=== PATIENT | female | born 1995 | race Caucasian/White ===

== ENCOUNTER 2017-05-06 08:10 | Emergency (ER) | payer OTHER ==
[2017-05-06] MEDS ORDERED: SODIUM CHLORIDE 0.9% 1,000 ML IV STA (08:37)
--- NOTE | 2017-05-06 08:44 | ED ---
General Adult HPI - General Chief complaint: Chest Pain Stated complaint: Heart condition Time Seen by Provider: 05/06/17 08:28 Source: patient, RN notes reviewed Mode of arrival: wheelchair Limitations: no limitations - History of Present Illness Initial comments: Patient 21-year-old female with significant past medical history for vasovagal syncope, who presents emergency room today with chief complaint of having heart palpitations after leaving work this started approximately 7 AM. She states she does feel a little lightheaded and dizzy. 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 She states she's been eating and drinking appropriately. States symptoms seem to be improving at this time. She denies any pain. Patient does admit that the symptoms are consistent with feelings and symptoms that she's had in the past with her vasovagal. Denies any travel. Patient denies any recent fever, chills, shortness of breath, chest pain, back pain, abdominal pain, nausea or vomiting, numbness or tingling, dysuria or hematuria, constipation or diarrhea, headaches or visual changes, or any other complaints. - Related Data Home Medications Medication Instructions Recorded Confirmed Acetaminophen Tab [Tylenol Tab] 650 mg PO Q4H PRN 05/06/17 05/06/17 Metoprolol Succinate [Toprol XL] 25 mg PO DAILY 05/06/17 05/06/17 Allergies Allergy/AdvReac Type Severity Reaction Status Date / Time No Known Allergies Allergy Verified 05/06/17 08:27 Review of Systems ROS Statement: Those systems with pertinent positive or pertinent negative responses have been documented in the HPI. ROS Other: All systems not noted in ROS Statement are negative. Past Medical History Additional Past Medical History / Comment(s): vasal vagal syncope History of Any Multi-Drug Resistant Organisms: None Reported Past Surgical History: Orthopedic Surgery Additional Past Surgical History / Comment(s): left knee Past Psychological History: No Psychological Hx Reported Smoking Status: Current every day smoker Past Alcohol Use History: Occasional Past Drug Use History: None Reported General Exam - General Exam Comments Initial Comments: General: The patient is awake and alert, in no distress, and does not appear acutely ill. Eye: Pupils are equal, round and reactive to light, extra-ocular movements are intact. No nystagmus. There is normal conjunctiva bilaterally. No signs of icterus. Ears, nose, mouth and throat: There are moist mucous membranes and no oral lesions. Neck: The neck is supple, there is no tenderness or JVD. Cardiovascular: There is a regular rate and rhythm. No murmur, rub or gallop is appreciated. Respiratory: Lungs are clear to auscultation, respirations are non-labored, breath sounds are equal. No wheezes, stridor, rales, or rhonchi. Gastrointestinal: Soft, non-distended, non-tender abdomen without masses or organomegaly noted. There is no rebound or guarding present. No CVA tenderness. Bowel sounds are unremarkable. Musculoskeletal: Normal ROM, no tenderness. Strength 5/5. Sensation intact. Pulses equal bilaterally 2+. Neurological: A&O x 3. CN II-XII intact, There are no obvious motor or sensory deficits. Coordination appears grossly intact. Speech is normal. Skin: Skin is warm and dry and no rashes or lesions are noted. Psychiatric: Cooperative, appropriate mood & affect, normal judgment. Limitations: no limitations Course Vital Signs 05/06/17 08:13 Temperature 96.9 F L Pulse Rate 105 H Respiratory 20 Rate Blood Pressure 145/86 O2 Sat by Pulse 99 Oximetry EKG Findings - EKG Comments: EKG Findings:: 0827: A 12-lead EKG was performed and interpreted by me as showing the following: Rate is 82, and rhythm is normal sinus. There are normal QRS complexes and normal R-wave progression. ST segments have no elevation or depression, and OK segments appear normal. Medical Decision Making - Medical Decision Making Patient reexamined at this time shows no signs of distress. She resting comfortably in the stretcher. Case was discussed with attending physician Dr. Mckinney. Patient's chest x-rays negative. Labs are unremarkable. EKG shows normal sinus rhythm. Patient does admit that these symptoms are consistent with vasovagal into that she's had in the past. At this time she is asymptomatic feeling better. Patient will be discharged home. Advised follow- up the family doctor over the next 2 days. Advised return for any other concerns. - Lab Data Result diagrams: 05/06/17 09:03 05/06/17 09:03 Lab Results 05/06/17 05/06/17 05/06/17 Range/Units 09:03 09:03 09:03 WBC 8.7 (3.8-10.6) k/uL RBC 4.78 (3.80-5.40) m/uL Hgb 13.3 (11.4-16.0) gm/dL Hct 39.2 (34.0-46.0) % MCV 82.0 (80.0-100.0) fL MCH 27.8 (25.0-35.0) pg MCHC 33.9 (31.0-37.0) g/dL RDW 13.1 (11.5-15.5) % Plt Count 267 (150-450) k/uL Neutrophils % 53 % Lymphocytes % 32 % Monocytes % 7 % Eosinophils % 4 % Basophils % 0 % Neutrophils # 4.7 (1.3-7.7) k/uL Lymphocytes # 2.8 (1.0-4.8) k/uL Monocytes # 0.6 (0-1.0) k/uL Eosinophils # 0.4 (0-0.7) k/uL Basophils # 0.0 (0-0.2) k/uL PT 9.6 (9.0-12.0) sec INR 0.9 (<1.2) APTT 25.8 (22.0-30.0) sec Sodium 143 (137-145) mmol/L Potassium 3.7 (3.5-5.1) mmol/L Chloride 110 H (98-107) mmol/L Carbon Dioxide 24 (22-30) mmol/L Anion Gap 9 mmol/L BUN 18 H (7-17) mg/dL Creatinine 0.79 (0.52-1.04) mg/dL Est GFR (MDRD) Af Amer >60 (>60 ml/min/1.73 sqM) Est GFR (MDRD) Non-Af >60 (>60 ml/min/1.73 sqM) Glucose 96 (74-99) mg/dL Calcium 9.4 (8.4-10.2) mg/dL Total Bilirubin 0.4 (0.2-1.3) mg/dL AST 19 (14-36) U/L ALT 30 (9-52) U/L Alkaline Phosphatase 61 (38-126) U/L Total Creatine Kinase (30-135) U/L CK-MB (CK-2) (0.0-2.4) ng/mL CK-MB (CK-2) Rel Index Troponin I (0.000-0.034) ng/mL Total Protein 6.5 (6.3-8.2) g/dL Albumin 3.8 (3.5-5.0) g/dL Urine Color Urine Appearance (Clear) Urine pH (5.0-8.0) Ur Specific [place] (1.001-1.035) Urine Protein (Negative) Urine Glucose (UA) (Negative) Urine Ketones (Negative) Urine Blood (Negative) Urine Nitrite (Negative) Urine Bilirubin (Negative) Urine Urobilinogen (<2.0) mg/dL Ur Leukocyte Esterase (Negative) Urine HCG, Qual (Not Detectd) 05/06/17 05/06/17 05/06/17 Range/Units 09:03 09:17 09:17 WBC (3.8-10.6) k/uL RBC (3.80-5.40) m/uL Hgb (11.4-16.0) gm/dL Hct (34.0-46.0) % MCV (80.0-100.0) fL MCH (25.0-35.0) pg MCHC (31.0-37.0) g/dL RDW (11.5-15.5) % Plt Count (150-450) k/uL Neutrophils % % Lymphocytes % % Monocytes % % Eosinophils % % Basophils % % Neutrophils # (1.3-7.7) k/uL Lymphocytes # (1.0-4.8) k/uL Monocytes # (0-1.0) k/uL Eosinophils # (0-0.7) k/uL Basophils # (0-0.2) k/uL PT (9.0-12.0) sec INR (<1.2) APTT (22.0-30.0) sec Sodium (137-145) mmol/L Potassium (3.5-5.1) mmol/L Chloride (98-107) mmol/L Carbon Dioxide (22-30) mmol/L Anion Gap mmol/L BUN (7-17) mg/dL Creatinine (0.52-1.04) mg/dL Est GFR (MDRD) Af Amer (>60 ml/min/1.73 sqM) Est GFR (MDRD) Non-Af (>60 ml/min/1.73 sqM) Glucose (74-99) mg/dL Calcium (8.4-10.2) mg/dL Total Bilirubin (0.2-1.3) mg/dL AST (14-36) U/L ALT (9-52) U/L Alkaline Phosphatase (38-126) U/L Total Creatine Kinase 96 (30-135) U/L CK-MB (CK-2) 0.7 (0.0-2.4) ng/mL CK-MB (CK-2) Rel Index 0.7 Troponin I <0.012 (0.000-0.034) ng/mL Total Protein (6.3-8.2) g/dL Albumin (3.5-5.0) g/dL Urine Color Yellow Urine Appearance Clear (Clear) Urine pH 5.5 (5.0-8.0) Ur Specific [place] 1.015 (1.001-1.035) Urine Protein Trace H (Negative) Urine Glucose (UA) Negative (Negative) Urine Ketones Negative (Negative) Urine Blood Negative (Negative) Urine Nitrite Negative (Negative) Urine Bilirubin Negative (Negative) Urine Urobilinogen <2.0 (<2.0) mg/dL Ur Leukocyte Esterase Negative (Negative) Urine HCG, Qual Not Detected (Not Detectd) Disposition Clinical Impression: Lightheaded, Palpitations Disposition: HOME SELF-CARE Condition: Good Instructions: Palpitations (ED) Additional Instructions: He's felt family doctor in the next 1-2 days. Please return here to the emergency room if any symptoms increase or worsen or for any other concerns. Referrals: Delma Sutherland MD [Primary Care Provider] - 1-2 days Time of Disposition: 10:18
[2017-05-06 09:18] LABS: Basophils % (A) 0 %; CH 27.5; CHCM 33.7; Eosinophils # (A) 0.4 k/uL (0-0.7); Eosinophils % (A) 4 %; HCT 39.2 % (34.0-46.0); HGB 13.3 gm/dL (11.4-16.0); Luc % (Auto) 4; Lymphocytes # (A) 2.8 k/uL (1.0-4.8); Lymphocytes % (A) 32 %; MCH 27.8 pg (25.0-35.0); MCHC 33.9 g/dL (31.0-37.0); Mean Platelet Volume 6.4; Monocytes # (A) 0.6 k/uL (0-1.0); Monocytes % (A) 7 %; Neutrophils # (A) 4.7 k/uL (1.3-7.7); Neutrophils % (A) 53 %; RBC 4.78 m/uL (3.80-5.40); RDW 13.1 % (11.5-15.5); WBC 8.7 k/uL (3.8-10.6); WBC (Perox) 8.57
[2017-05-06 09:25] LABS: INR 0.9 (<1.2); Partial Thromboplastin Time 25.8 sec (22.0-30.0); Prothrombin Time 9.6 sec (9.0-12.0)
[2017-05-06 09:29] LABS: ALT 30 U/L (9-52); AST 19 U/L (14-36); Alkaline Phosphatase 61 U/L (38-126); Anion Gap 9 mmol/L; Blood Urea Nitrogen 18 mg/dL (7-17); Calcium 9.4 mg/dL (8.4-10.2); Carbon Dioxide 24 mmol/L (22-30); Chloride 110 mmol/L (98-107); Glucose 96 mg/dL (74-99); Non-African American GFR(MDRD) >60 (>60 ml/min/1.73 sqM); Potassium 3.7 mmol/L (3.5-5.1); Sodium 143 mmol/L (137-145); Total Bilirubin 0.4 mg/dL (0.2-1.3); Total Protein 6.5 g/dL (6.3-8.2)
[2017-05-06 09:41] LABS: Appearance,Urine Clear (Clear); Bilirubin,Urine Negative (Negative); Glucose,Urine (UA) Negative (Negative); Ketones,Urine Negative (Negative); Leukocyte Esterase,Urine Negative (Negative); Nitrite,Urine Negative (Negative); PH, Urine 5.5 (5.0-8.0); Protein,Urine Trace (Negative); Specific Gravity,Urine 1.015 (1.001-1.035); UA Billing (MACRO vs. MICRO) CHEM; Urobilinogen,Urine <2.0 mg/dL (<2.0)
[2017-05-06 09:43] LABS: Creatine Kinase 96 U/L (30-135)
[2017-05-06 09:56] LABS: Creatine Kinase MB 0.7 ng/mL (0.0-2.4); Troponin I <0.012 ng/mL (0.000-0.034)
--- NOTE | 2017-05-06 09:58 | XR ---
EXAMINATION TYPE: XR chest 2V DATE OF EXAM: 05/06/2017 CLINICAL HISTORY: Palpitations TECHNIQUE: Frontal and lateral views of the chest are obtained. COMPARISON: None FINDINGS: There is no focal air space opacity, pleural effusion, or pneumothorax seen. The cardiac silhouette size is within normal limits. The osseous structures are intact. IMPRESSION: No acute cardiopulmonary process.
[2017-05-06 10:40] VITALS: BP 114/57; PULSE 80; RESP 18; TEMP 98
== END 2017-05-06 10:40 | disposition home or self-care (01) ==
LOC: SUPCPDRO 08:10 → EC 08:10
DX: R00.2 Palpitations (principal); R42 Dizziness and giddiness; R07.9 Chest pain, unspecified; F17.200 Nicotine dependence, unspecified, uncomplicated; Z79.899 Other long term (current) drug therapy
CPT/HCPCS: 36415; 71020; 80053; 81003; 81025; 82550; 82553; 84484; 85025; 85610; 85730; 93005; 96360; 99285

== ENCOUNTER 2019-02-05 15:01 | Emergency (ER) | payer BC, OTHER ==
[2019-02-05] MEDS ORDERED: SODIUM CHLORIDE 0.9% 500 ML 500 ML IV ONE (15:06)
--- NOTE | 2019-02-05 15:12 | ED ---
Female Urogenital HPI - General Chief complaint: Vaginal Bleeding Stated complaint: 14 wks , spotting Time Seen by Provider: 02/05/19 15:05 - History of Present Illness Initial comments: well-appearing 23 to female with history of vasovagal syncope presented today for chief complaint of spotting in . Patient states she has had painless spotting for the past 2 days. She states is light pink. Patient den ies any associated pain or vaginal discharge. Patient denies any vomiting dysuria urgency or frequency. Patient states that she has been evaluated by both her TRADE SHOW MANAGER and obstetric specialist given her history of vasovagal syncope within the past 2 months. She states she is scheduled appointment for February and March with Dr. Castro and her specialist TRADE SHOW MANAGER who she cannot recall her name. Patient states there has not been any [place] eating processes of her . Patient was concerned she was miscarrying presented for evaluation of spotting. Patient's remaining review of systems negative. Last menstrual period October 2018. - Related Data Home Medications Medication Instructions Recorded Confirmed Acetaminophen Tab [Tylenol Tab] 650 mg PO Q4H PRN 05/06/17 05/06/17 Metoprolol Succinate [Toprol XL] 25 mg PO DAILY 05/06/17 05/06/17 Allergies Allergy/AdvReac Type Severity Reaction Status Date / Time No Known Allergies Allergy Verified 02/05/19 15:20 Review of Systems ROS Statement: Those systems with pertinent positive or pertinent negative responses have been documented in the HPI. ROS Other: All systems not noted in ROS Statement are negative. Past Medical History Additional Past Medical History / Comment(s): vasal vagal syncope History of Any Multi-Drug Resistant Organisms: None Reported Past Surgical History: Orthopedic Surgery Additional Past Surgical History / Comment(s): left knee Past Psychological History: No Psychological Hx Reported Smoking Status: Current every day smoker Past Alcohol Use History: Occasional Past Drug Use History: None Reported General Exam - General Exam Comments Initial Comments: General: The patient is awake and alert, in no distress, and does not appear acutely ill. Eye: Pupils are equal, round and reactive to light, extra-ocular movements are intact. No nystagmus. There is normal conjunctiva bilaterally. No signs of icterus. Ears, nose, mouth and throat: There are moist mucous membranes and no oral lesions. Neck: The neck is supple, there is no tenderness or JVD. Cardiovascular: There is a regular rate and rhythm. No murmur, rub or gallop is appreciated. Respiratory: Lungs are clear to auscultation, respirations are non-labored, breath sounds are equal. No wheezes, stridor, rales, or rhonchi. Gastrointestinal: Soft, non-distended, non-tender abdomen without masses or organomegaly noted. There is no rebound or guarding present. Bowel sounds are unremarkable. Pelvic: No external lesions. Vaginal mucosa pink well rugated. Light pink blood in vaginal vault. No discharge. Os closed. No adnexal or cervical motion tenderness. Musculoskeletal: Normal ROM, no tenderness. Strength 5/5. Sensation intact. Pulses equal bilaterally 2+. Neurological: A&O x 3. CN II-XII intact, There are no obvious motor or sensory deficits. Coordination appears grossly intact. Speech is normal. Skin: Skin is warm and dry and no rashes or lesions are noted. Psychiatric: Cooperative, appropriate mood & affect, normal judgment. Course Vital Signs 02/05/19 15:17 Temperature 98.5 F Pulse Rate 76 Respiratory 16 Rate Blood Pressure 110/75 O2 Sat by Pulse 97 Oximetry Medical Decision Making - Medical Decision Making Very well-appearing 23-year-old female presenting first painless spotting in . Ultrasound revealed intrauterine measuring 14 weeks 2 days, HR WNL, there is no complicating process seen at this time. Patient is very minimal bleeding on pelvic examination this is light pink in color. No odors. No Discharge. Vaginal cultures pending. Patient denies any dysuria urgency or frequency or other urinary symptoms. Patient denies any pain. Cervical os was closed without any adnexal or cervical motion tenderness. Patient appears well with stable hemoglobin hemodynamically stable with normal blood pressure. Patient is a positive no indication of her program at this time. At this time feel patient has threatened miscarriage she is to follow-up with TRADE SHOW MANAGER, and return for any worsening or concerning symptoms. Patient is agreeable care plan as well as discharge at this time. I did discuss the case attending provider Dr. Santiago prior to patients discharge. - Lab Data Result diagrams: 02/05/19 15:35 02/05/19 15:35 Lab Results 02/05/19 02/05/19 02/05/19 Range/Units 15:35 15:35 15:35 WBC 10.3 (3.8-10.6) k/uL RBC 4.63 (3.80-5.40) m/uL Hgb 12.9 (11.4-16.0) gm/dL Hct 38.1 (34.0-46.0) % MCV 82.3 (80.0-100.0) fL MCH 27.8 (25.0-35.0) pg MCHC 33.8 (31.0-37.0) g/dL RDW 12.8 (11.5-15.5) % Plt Count 236 (150-450) k/uL Neutrophils % 70 % Lymphocytes % 21 % Monocytes % 5 % Eosinophils % 3 % Basophils % 0 % Neutrophils # 7.2 (1.3-7.7) k/uL Lymphocytes # 2.2 (1.0-4.8) k/uL Monocytes # 0.5 (0-1.0) k/uL Eosinophils # 0.3 (0-0.7) k/uL Basophils # 0.0 (0-0.2) k/uL Sodium 137 (137-145) mmol/L Potassium 4.2 (3.5-5.1) mmol/L Chloride 107 (98-107) mmol/L Carbon Dioxide 21 L (22-30) mmol/L Anion Gap 9 mmol/L BUN 9 (7-17) mg/dL Creatinine 0.46 L (0.52-1.04) mg/dL Est GFR (CKD-EPI)AfAm >90 (>60 ml/min/1.73 sqM) Est GFR (CKD-EPI)NonAf >90 (>60 ml/min/1.73 sqM) Glucose 91 (74-99) mg/dL Calcium 10.0 (8.4-10.2) mg/dL Total Bilirubin 0.2 (0.2-1.3) mg/dL AST 13 L (14-36) U/L ALT 13 (9-52) U/L Alkaline Phosphatase 35 L (38-126) U/L Total Protein 6.6 (6.3-8.2) g/dL Albumin 4.0 (3.5-5.0) g/dL HCG, Quant 37454.3 mIU/mL Urine Color Urine Appearance (Clear) Urine pH (5.0-8.0) Ur Specific [place] (1.001-1.035) Urine Protein (Negative) Urine Glucose (UA) (Negative) Urine Ketones (Negative) Urine Blood (Negative) Urine Nitrite (Negative) Urine Bilirubin (Negative) Urine Urobilinogen (<2.0) mg/dL Ur Leukocyte Esterase (Negative) Urine RBC (0-5) /hpf Urine WBC (0-5) /hpf Ur Squamous Epith Cells (0-4) /hpf Urine Mucus (None) /hpf Trichomonas Ag (Rapid) (Negative) Blood Type A Positive Blood Type Confirm Blood Type Recheck CABO Indicated Antibody Screen NEGATIVE Spec Expiration Date 02/08/2019 - 233402/05/19 02/05/19 02/05/19 Range/Units 15:40 16:45 16:45 WBC (3.8-10.6) k/uL RBC (3.80-5.40) m/uL Hgb (11.4-16.0) gm/dL Hct (34.0-46.0) % MCV (80.0-100.0) fL MCH (25.0-35.0) pg MCHC (31.0-37.0) g/dL RDW (11.5-15.5) % Plt Count (150-450) k/uL Neutrophils % % Lymphocytes % % Monocytes % % Eosinophils % % Basophils % % Neutrophils # (1.3-7.7) k/uL Lymphocytes # (1.0-4.8) k/uL Monocytes # (0-1.0) k/uL Eosinophils # (0-0.7) k/uL Basophils # (0-0.2) k/uL Sodium (137-145) mmol/L Potassium (3.5-5.1) mmol/L Chloride (98-107) mmol/L Carbon Dioxide (22-30) mmol/L Anion Gap mmol/L BUN (7-17) mg/dL Creatinine (0.52-1.04) mg/dL Est GFR (CKD-EPI)AfAm (>60 ml/min/1.73 sqM) Est GFR (CKD-EPI)NonAf (>60 ml/min/1.73 sqM) Glucose (74-99) mg/dL Calcium (8.4-10.2) mg/dL Total Bilirubin (0.2-1.3) mg/dL AST (14-36) U/L ALT (9-52) U/L Alkaline Phosphatase (38-126) U/L Total Protein (6.3-8.2) g/dL Albumin (3.5-5.0) g/dL HCG, Quant mIU/mL Urine Color Yellow Urine Appearance Clear (Clear) Urine pH 5.5 (5.0-8.0) Ur Specific [place] 1.017 (1.001-1.035) Urine Protein Negative (Negative) Urine Glucose (UA) Negative (Negative) Urine Ketones Negative (Negative) Urine Blood Small H (Negative) Urine Nitrite Negative (Negative) Urine Bilirubin Negative (Negative) Urine Urobilinogen <2.0 (<2.0) mg/dL Ur Leukocyte Esterase Negative (Negative) Urine RBC <1 (0-5) /hpf Urine WBC 1 (0-5) /hpf Ur Squamous Epith Cells 1 (0-4) /hpf Urine Mucus Rare H (None) /hpf Trichomonas Ag (Rapid) Negative (Negative) Blood Type Blood Type Confirm A Positive Blood Type Recheck Antibody Screen Spec Expiration Date Disposition Clinical Impression: Threatened miscarriage, Bleeding in early Disposition: HOME SELF-CARE Condition: Good Instructions (If sedation given, give patient instructions): Threatened Miscarriage (ED) Additional Instructions: Please use medication as discussed. Please follow-up with OBGYN within next 1-2 weeks. Please return to emergency room if the symptoms increase or worsen or for any other concerns. Is patient prescribed a controlled substance at d/c from ED?: No Referrals: Delma Sutherland MD [Primary Care Provider] - 1-2 days Lisseth Castro DO [Doctor of Osteopathic Medicine] - 1-2 days Time of Disposition: 16:48
[2019-02-05 15:20] VITALS: RESP 16
[2019-02-05 16:00] LABS: Basophils % (A) 0 %; Eosinophils # (A) 0.3 k/uL (0-0.7); Eosinophils % (A) 3 %; HCT 38.1 % (34.0-46.0); HGB 12.9 gm/dL (11.4-16.0); Lymphocytes # (A) 2.2 k/uL (1.0-4.8); Lymphocytes % (A) 21 %; MCH 27.8 pg (25.0-35.0); MCHC 33.8 g/dL (31.0-37.0); MCV 82.3 fL (80.0-100.0); Mean Platelet Volume 6.5; Monocytes # (A) 0.5 k/uL (0-1.0); Monocytes % (A) 5 %; Neutrophils # (A) 7.2 k/uL (1.3-7.7); Neutrophils % (A) 70 %; Platelet Count 236 k/uL (150-450); RBC 4.63 m/uL (3.80-5.40); RDW 12.8 % (11.5-15.5); WBC 10.3 k/uL (3.8-10.6)
[2019-02-05 16:09] LABS: ALT 13 U/L (9-52); AST 13 U/L (14-36); Alkaline Phosphatase 35 U/L (38-126); Anion Gap 9 mmol/L; Blood Urea Nitrogen 9 mg/dL (7-17); Carbon Dioxide 21 mmol/L (22-30); Chloride 107 mmol/L (98-107); Glucose 91 mg/dL (74-99); Potassium 4.2 mmol/L (3.5-5.1); Sodium 137 mmol/L (137-145); Total Bilirubin 0.2 mg/dL (0.2-1.3); Total Protein 6.6 g/dL (6.3-8.2)
--- NOTE | 2019-02-05 16:15 | US ---
EXAMINATION TYPE: Transabdominal DATE OF EXAM: 02/05/2019 4:01 PM COMPARISON: NONE CLINICAL HISTORY: spotting/cramping in , 14 weeks. EXAM PERFORMED: EXAM MEASUREMENTS: GESTATIONAL AGE / DATING Physician Established: (14 weeks/2 days) EDC: 08/04/19 Dates by LMP: ( 14 weeks/2 days) EDC: 08/04/19 Dates by First Scan: not available ( Dates by Current Scan for: (14 weeks/1 days) EDC: 08/05/19 MATERNAL ANATOMY Uterus: 14.2 x 7.8 x 9.7cm Right Ovary: not visualized due to increasing uterine size and overlying bowel gas Left Ovary: not visualized due to increasing uterine size and overlying bowel gas Post CDS / Adnexa: wnl Presence of free fluid: no GESTATION / SURVEY CRL: 8.1cm ( 14 weeks/1 days) Yolk Sac (normal less than 6mm): not seen Heart Rate: 148 bpm Rhythm: Normal IUP: Live IUP Date of LMP: 10/28/2018 Beta HcG (if available): Not available at this time IMPRESSION: Single live intrauterine with a sonographic age of 14 weeks and 1 day, concordant with mens trual age and heart rate of 148 bpm. No complicating process is identified.
[2019-02-05 17:19] LABS: HCG,Quantitative Serum 35883.3 mIU/mL
[2019-02-05 17:31] LABS: Appearance,Urine Clear (Clear); Bilirubin,Urine Negative (Negative); Blood,Urine Small (Negative); Color,Urine Yellow; Glucose,Urine (UA) Negative (Negative); Ketones,Urine Negative (Negative); Leukocyte Esterase,Urine Negative (Negative); Mucus,Urine Rare /hpf; Nitrite,Urine Negative (Negative); PH, Urine 5.5 (5.0-8.0); Protein,Urine Negative (Negative); RBC,Urine <1 /hpf (0-5); Specific Gravity,Urine 1.017 (1.001-1.035); Squamous Epithelial Cell,Urine 1 /hpf (0-4); Urobilinogen,Urine <2.0 mg/dL (<2.0); WBC,Urine 1 /hpf (0-5)
[2019-02-05 17:49] VITALS: BP 101/52; PULSE 79; TEMP 98
[2019-02-06 14:28] LABS: N. gonorrhoeae,PCR Negative (Neg,Equiv); Neisseria Source Vagina
[2019-02-06 14:32] LABS: C. trachomatis,PCR Negative (Neg,Equiv); Chlamydia trachomatis Source Vagina
== END 2019-02-05 17:50 | disposition home or self-care (01) ==
LOC: EC 15:01
DX: O20.0 Threatened abortion (principal); O99.332 Smoking (tobacco) complicating pregnancy, second trimester; F17.200 Nicotine dependence, unspecified, uncomplicated; Z3A.14 14 weeks gestation of pregnancy; Z79.899 Other long term (current) drug therapy
CPT/HCPCS: 36415; 76801; 80053; 81001; 84702; 85025; 86850; 86900; 86901; 87070; 87205; 87491; 87591; 87808; 96360; 99284

== ENCOUNTER → 2019-02-22 | Outpatient (CLI) | payer BC, OTHER | END | disposition home or self-care (01) | LOC: LABWHC1 13:10 | PROVIDERS: ATTEND Obstetrics & Gynecology Maternal & Fetal Medicine | DX: Z34.81 Encounter for supervision of other normal pregnancy, first trimester (principal) | CPT/HCPCS: 36415; 82105; 82677; 84702; 86336 ==

== ENCOUNTER → 2019-04-29 | Outpatient (CLI) | payer BC, OTHER ==
[2019-04-29 13:14] LABS: Glucose 3 Hour, Gest 57 mg/dL
== END | disposition home or self-care (01) ==
LOC: LABWHC1 08:44
PROVIDERS: ATTEND Obstetrics & Gynecology
DX: O99.810 Abnormal glucose complicating pregnancy (principal)
CPT/HCPCS: 36415; 82951; 82952

== ENCOUNTER 2019-08-02 05:48 | Inpatient (IN) | payer BC, OTHER ==
[2019-07-29 14:49] VITALS: BMI 42.4
--- NOTE | 2019-08-01 18:57 | P.HPOB ---
History of Present Illness H&P Date: 08/01/19 Chief Complaint: Macrosomia This is a 23-year-old female 1 para 0 with a estimated date of confinement of 07/04/2019, estimated gestational age of 39-5/7 weeks, who presents to labor and delivery for scheduled primary section secondary to macrosomia. Her ultrasound at 39 weeks showed an estimated weight of 9 lbs. 8 oz. which was greater than 90th percentile. In light of the potential risk for shoulder dystocia, she wishes to proceed with very section. labs: GC/chlamydia-negative Hepatitis B surface antigen-negative RPR-nonreactive Rubella-nonimmune Blood type-A+ Antibody screen-negative HIV-nonreactive Hemoglobin-13.1 Random glucose-76 Integrated screen-negative One hour Glucola-154 Three-hour Glucola-within normal limits Group B streptococcus-positive Obstetrical history: Gynecologic history: No history of sexual transmitted diseases. Social history: She is single. She works full-time at [employer] Review of Systems Constitutional: Denies chills, Denies fever Eyes: denies blurred vision, denies pain Ears, nose, mouth and throat: Denies headache, Denies sore throat Cardiovascular: Denies chest pain, Denies shortness of breath Respiratory: Denies cough Gastrointestinal: Reports abdominal pain (Irregular contractions) Genitourinary: Reports pelvic pain, Reports Musculoskeletal: Reports low back pain Integumentary: Denies pruritus, Denies rash Neurological: Denies numbness, Denies weakness Psychiatric: Denies anxiety, Denies depression Past Medical History Past Medical History: Atrial Flutter, GERD/Reflux, Hypertension Additional Past Medical History / Comment(s): vasal vagal syncope. irregular heart rate "races" History of Any Multi-Drug Resistant Organisms: None Reported Past Surgical History: Orthopedic Surgery Additional Past Surgical History / Comment(s): left knee Past Anesthesia/Blood Transfusion Reactions: No Reported Reaction Past Psychological History: ADD/ADHD Smoking Status: Never smoker Past Alcohol Use History: None Reported Past Drug Use History: None Reported - Past Family History Mother Family Medical History: No Reported History Medications and Allergies Home Medications Medication Instructions Recorded Confirmed Type Acetaminophen Tab [Tylenol Tab] 650 mg PO Q4H PRN 05/06/17 07/29/19 History L.acidoph,Paracasei, B.lactis 1 each PO DAILY 07/29/19 07/29/19 History [Probiotic] Yto-Uqoz-Eosjb Acid 1 cap PO DAILY 07/29/19 07/29/19 History [-U Capsule (formulary)] Allergies Allergy/AdvReac Type Severity Reaction Status Date / Time No Known Allergies Allergy Verified 07/29/19 14:40 Exam Osteopathic Statement: *. No significant issues noted on an osteopathic structural exam other than those noted in the History and Physical/Consult. HEENT: Within normal limits Heart: Regular rate and rhythm Lungs: Clear to auscultation bilaterally Abdomen: Cervix: 1 cm/60%/-2 station heart tones: 140s by Doppler Extremities: Negative Homans Assessment and Plan (1) 39 weeks gestation of Status: Acute Code(s): Z3A.39 - 39 WEEKS GESTATION OF SNOMED Code(s): 07915425 (2) Macrosomia Status: Acute Code(s): P08.0 - EXCEPTIONALLY LARGE BABY SNOMED Code(s): 11063125 Plan: Proceed with primary low transverse section. I have discussed the risks, benefits, and alternative therapies for the above- mentioned procedure and for both sedation/anesthesia as well as necessary blood products administration, if indicated, as they pertain to this patient. The patient has indicated her understanding and acceptance of the risks and procedures discussed.
[2019-08-02] MEDS ORDERED: CITRIC ACID-SODIUM CITRATE 15 ML CUP PO ONE (06:04)
[2019-08-02] MEDS ORDERED: LIDOCAINE 1% 20 ML VIAL (10MG/ML) FOR IV START INTRADERMA PRN (06:04)
[2019-08-02] MEDS ORDERED: LACTATED RINGERS 1,000 ML IV ONE (06:04)
[2019-08-02] MEDS: LACTATED RINGERS 1,000 ML IV SCH ×2 (06:10→12:52)
[2019-08-02] MEDS ORDERED: ceFAZolin 3 GM in SODIUM CHLORIDE 0.9% 100 ML IVPB ONE (06:30)
[2019-08-02 06:46] LABS: Basophils # (A) 0.1 k/uL (0-0.2); Basophils % (A) 1 %; Eosinophils # (A) 0.2 k/uL (0-0.7); Eosinophils % (A) 2 %; HGB 12.1 gm/dL (11.4-16.0); Lymphocytes # (A) 1.7 k/uL (1.0-4.8); Lymphocytes % (A) 19 %; MCH 26.4 pg (25.0-35.0); MCHC 32.6 g/dL (31.0-37.0); MCV 80.8 fL (80.0-100.0); Mean Platelet Volume 6.7; Monocytes # (A) 0.6 k/uL (0-1.0); Monocytes % (A) 7 %; Neutrophils # (A) 5.9 k/uL (1.3-7.7); Neutrophils % (A) 68 %; Platelet Count 208 k/uL (150-450); RBC 4.57 m/uL (3.80-5.40); RDW 13.2 % (11.5-15.5); WBC 8.7 k/uL (3.8-10.6)
[2019-08-02] MEDS ORDERED: OXYTOCIN 10 UNIT/ML 1 ML VIAL ONE (07:49)
[2019-08-02] MEDS ORDERED: LACTATED RINGERS 1,000 ML BAG IV ONE (07:49)
[2019-08-02] MEDS ORDERED: MORPHINE SULFATE (PF) 0.3 MG/0.3 ML SYR ONE (07:49)
[2019-08-02] MEDS ORDERED: NALBUPHINE 10 MG/ML (1 ML AMP) ONE (07:49)
[2019-08-02] MEDS ORDERED: ONDANSETRON 4 MG/2 ML VIAL ONE (07:49)
[2019-08-02] MEDS ORDERED: PHENYLEPHRINE-0.9% NACL SYG 1 MG/10 ML SYRINGE ONE (07:49)
[2019-08-02] MEDS ORDERED: KETOROLAC 30 MG/ML 1 ML VIAL ONE (07:49)
[2019-08-02] MEDS ORDERED: ONDANSETRON 4 MG/2 ML VIAL IVP PRN ×2 (08:16→09:38)
[2019-08-02] MEDS ORDERED: NALOXONE 0.4 MG/ML 1 ML VIAL IV PRN ×2 (08:16→09:38)
[2019-08-02] MEDS ORDERED: HYDROmorphone 0.5 MG/0.5 ML SYRINGE IVP PRN (08:16)
[2019-08-02] MEDS ORDERED: diphenhydrAMINE 50 MG/ML 1 ML VIAL IVP PRN ×3 (08:16→09:38)
--- NOTE | 2019-08-02 08:33 | P.OP ---
Date of Procedure: 08/02/19 Preoperative Diagnosis: 1. Intrauterine at 39-5/7 weeks. 2. macrosomia. 3. Chronic hypertension. 4. Marginal cord insertion. Postoperative Diagnosis: Same Procedure(s) Performed: Primary low transverse section Anesthesia: spinal (Duramorph) Surgeon: Lisseth Castro Air Traffic Controller #1: Dipesh Gaona Estimated Blood Loss (ml): 700 Pathology: other (Placenta) Condition: stable Disposition: floor Indications for Procedure: This is a 23-year-old female 1 para 0 at 39-5/7 weeks who presents for scheduled primary section secondary to macrosomia. In addition she has a history of chronic hypertension and marginal cord insertion. She was counseled regarding the risks of macrosomia and risk for shoulder dystocia and wishes to proceed with section. I have discussed the risks, benefits, and alternative therapies for the above- mentioned procedure and for both sedation/anesthesia as well as necessary blood products administration, if indicated, as they pertain to this patient. The patient has indicated her understanding and acceptance of the risks and procedures discussed. Operative Findings: A viable male is noted in the vertex presentation with scores of 9 at 1 minute and 9 at 5 minutes and infant weight of 10 lbs. 8 oz. Normal uterus tubes and ovaries are noted. Description of Procedure: The patient is taken to the operating room where she is placed in the dorsal supine position with leftward tilt after spinal Duramorph anesthesia is given. She is prepped and draped in the normal sterile fashion. Skin was tested and found to be adequately anesthetized. A Pfannenstiel skin incision was made with a scalpel. A second knife was used to carry the incision down to the underlying layer of fascia. The fascia was nicked in the midline with a scalpel and then extended laterally bilaterally with Almanzar scissors. The anterior lip of the fascia was grasped with 2 Romelia clamps and then dissected off the underlying rectus muscle in the midline with Almanzar scissors. The inferior aspect of the fascial incision was grasped with 2 Romelia clamps and dissected off the underlying rectus muscle and the midline with Almanzar scissors. Next the peritoneum layer was tented up with 2 hemostats and then entered sharply with the scalpel. The incision is extended superiorly and inferiorly with Metzenbaum scissors. Next a DeLee retractor is placed. The vesicouterine peritoneum is entered sharply with Metzenbaum scissors and extended laterally bilaterally with Metzenbaum scissors and then the bladder flap is pushed inferiorly. The lower uterine segment is incised in transverse fashion with the scalpel and then bluntly entered with a hemostat. Clear fluid is noted. The incision was then extended laterally bilaterally with 2 fingers. Next the 's head is delivered through the incision. Nose and mouth are bulb suctioned. The remainder of the infant is then delivered and placed on mother's abdomen. Cord is clamped and cut. Terminal meconium was noted. is taken to warmer by nursing staff. Uterine fundus is gently massaged and placenta is delivered manually. Uterus is exteriorized and cleared of all clots and debris. Uterine incision is closed with 0 Vicryl suture in a running locked fashion. A second layer of 0 Vicryl suture is used in a running fashion for hemostasis. Once adequate hemostasis as assured, the vesicouterine peritoneum is reapproximated with 2-0 Vicryl suture in a running fashion. Posterior cul-de-sac is suctioned of all clots and debris. Uterus is returned to the abdomen. Incision is noted to be hemostatic. Peritoneal layer is closed with 0 Vicryl suture in a running fashion. Muscle layer is reapproximated with 0 Vicryl suture in interrupted fashion. Fascia layer is then closed with 0 PDS suture with 2 sutures meeting in the midline and the knots buried in either side and in the midline. The subcutaneous tissue was then closed with 2-0 Vicryl suture. Skin layer was then closed with tree. All sponge and needle counts are correct. The patient is taken to recovery room in stable condition.
[2019-08-02] MEDS ORDERED: MEASLES-MUMPS-RUBELLA VACC/PF 12,500 UNIT/0.5 ML VIAL SQ ONE (09:38)
[2019-08-02] MEDS ORDERED: SIMETHICONE 80 MG CHEWABLE PO PRN (09:38)
[2019-08-02] MEDS ORDERED: LANOLIN CREAM 5 GM TUBE TOPICAL PRN (09:38)
[2019-08-02] MEDS ORDERED: diphenhydrAMINE 25 MG CAP PO PRN (09:38)
[2019-08-02] MEDS ORDERED: OXYTOCIN 20 UNITS/1000 ML NS 1,000 ML IV SCH (09:38)
[2019-08-02] MEDS ORDERED: ACETAMINOPHEN TAB 325 MG TAB PO PRN (09:38)
[2019-08-02] MEDS ORDERED: METOCLOPRAMIDE 5 MG/ML 2 ML VIAL IVP PRN (09:38)
[2019-08-02] MEDS ORDERED: ZOLPIDEM 5 MG TAB PO PRN (09:38)
[2019-08-02] MEDS ORDERED: diphenhydrAMINE 50 MG CAP PO PRN (09:38)
[2019-08-02] MEDS ORDERED: KETOROLAC 30 MG/ML 1 ML VIAL IVP PRN (09:38)
[2019-08-02] MEDS: KETOROLAC 30 MG/ML 1 ML VIAL IVP PRN ×2 (15:27→21:30)
[2019-08-02] MEDS: SENNOSIDES-DOCUSATE SODIUM 1 EACH TAB PO SCH ×2 (20:38→21:30)
[2019-08-03] MEDS: KETOROLAC 30 MG/ML 1 ML VIAL IVP PRN (03:43)
[2019-08-03 06:55] LABS: Basophils # (A) 0.1 k/uL (0-0.2); Basophils % (A) 1 %; Eosinophils # (A) 0.1 k/uL (0-0.7); Eosinophils % (A) 1 %; HCT 33.8 % (34.0-46.0); HGB 11.2 gm/dL (11.4-16.0); Lymphocytes # (A) 1.2 k/uL (1.0-4.8); Lymphocytes % (A) 12 %; MCH 26.9 pg (25.0-35.0); MCV 81.3 fL (80.0-100.0); Mean Platelet Volume 6.8; Monocytes # (A) 0.9 k/uL (0-1.0); Monocytes % (A) 9 %; Neutrophils # (A) 7.3 k/uL (1.3-7.7); Neutrophils % (A) 74 %; Platelet Count 209 k/uL (150-450); RBC 4.16 m/uL (3.80-5.40); RDW 13.4 % (11.5-15.5); WBC 9.9 k/uL (3.8-10.6)
[2019-08-03] MEDS: SENNOSIDES-DOCUSATE SODIUM 1 EACH TAB PO SCH ×2 (08:52→22:51)
--- NOTE | 2019-08-03 09:39 | P.PNOBGPC ---
Subjective - Subjective Principal diagnosis: Status post primary section postoperative day #1 Interval history: Patient is doing well. She is passing flatus. She denies any bowel movement yet. She is bottle feeding. Lochia is decreasing. Pain is fairly well controlled at this time. Patient reports: Reports appetite normal, Reports voiding normally, Reports pain well controlled, Reports ambulating normally [place]: doing well, bottle feeding Objective - Vital Signs Latest vital signs: Vital Signs Temp Pulse Resp BP Pulse Ox 08/03/19 04:00 98.1 F 93 16 111/67 08/03/19 03:00 14 08/03/19 00:00 98.5 F 94 16 112/74 08/02/19 23:00 16 08/02/19 21:00 98.5 F 94 16 112/74 08/02/19 20:00 99.3 F 94 14 119/70 08/02/19 19:00 15 08/02/19 17:00 15 96 08/02/19 16:00 98.1 F 110 H 16 128/73 96 08/02/19 15:00 16 08/02/19 12:00 98.3 F 105 H 15 127/78 96 08/02/19 10:38 97 F L 97 16 119/67 08/02/19 10:10 102 H 16 101/62 08/02/19 09:45 96 08/02/19 09:44 16 08/02/19 09:40 96 16 107/62 Intake and Output 08/02/19 08/03/19 08/03/19 22:59 06:59 14:59 Output Total 500 1400 Balance -500 -1400 Output: Urine 500 1400 Straight 600 Uretheral (Linda) 500 - Exam Extremities: Absent: normal Abdomen: Present: normal appearance, soft (Positive bowel sounds 4). Absent: distention, tenderness Incision: Present: normal, dry, intact. Absent: erythematous Uterus: Present: normal, firm. Absent: tenderness - Labs Labs: Abnormal Lab Results - Last 24 Hours (Table) 08/03/19 Range/Units 06:17 Hgb 11.2 L (11.4-16.0) gm/dL Hct 33.8 L (34.0-46.0) % Assessment and Plan Assessment: Status post primary section postoperative day #1 (1) 39 weeks gestation of Current Visit: No Status: Acute Code(s): Z3A.39 - 39 WEEKS GESTATION OF SNOMED Code(s): 78340661 (2) Macrosomia Current Visit: No Status: Acute Code(s): P08.0 - EXCEPTIONALLY LARGE BABY SNOMED Code(s): 76293948 Plan: Continue with postoperative care. Encouraged ambulation. Will advance diet as tolerated.
--- NOTE | 2019-08-03 10:41 | P.PN ---
Progress Note - Text Anesthesia POD 1. Patient is status post section under spinal anesthesia with intra-thecal preservative free morphine 300 g. Mild pruritus, good post-op analgesia, and no headache or other complication.
[2019-08-03] MEDS: IBUPROFEN 600 MG TAB PO PRN ×2 (12:11→17:59)
[2019-08-03] MEDS: HYDROcodone/APAP 5-325MG 1 EACH TAB PO PRN (15:38)
[2019-08-03] MEDS: HYDROcodone/APAP 7.5-325MG 1 EACH TAB PO PRN (22:51)
[2019-08-04] MEDS: IBUPROFEN 600 MG TAB PO PRN ×4 (00:58→18:35)
[2019-08-04] MEDS: HYDROcodone/APAP 7.5-325MG 1 EACH TAB PO PRN ×2 (04:08→21:31)
--- NOTE | 2019-08-04 08:24 | P.PNOBGPC ---
Subjective - Subjective Principal diagnosis: Status post primary section postoperative day #2 Interval history: Patient complains of more pain especially when trying to get in and out of bed. She feels it is related to her tree. She has been trying a abdominal binder. She is passing flatus and bowel movement. Baby is bottle feeding. Lochia is decreasing. Patient reports: Reports appetite normal, Reports voiding normally, Reports ambulating normally : doing well, bottle feeding Objective - Vital Signs Latest vital signs: Vital Signs Temp Pulse Resp BP Pulse Ox 08/04/19 00:00 98.7 F 96 18 119/75 08/03/19 15:48 98.0 F 85 16 120/70 99 Intake and Output 08/03/19 08/04/19 08/04/19 22:59 06:59 14:59 Other: # Voids 2 1 - Exam Extremities: Present: normal. Absent: tenderness Abdomen: Present: normal appearance, soft (Positive bowel sounds 4). Absent: distention, tenderness Incision: Present: normal, dry, intact. Absent: erythematous Uterus: Present: normal, firm. Absent: tenderness Assessment and Plan Assessment: Status post primary section postoperative day #2 (1) 39 weeks gestation of Current Visit: No Status: Acute Code(s): Z3A.39 - 39 WEEKS GESTATION OF SNOMED Code(s): 70326935 (2) Macrosomia Current Visit: No Status: Acute Code(s): P08.0 - EXCEPTIONALLY LARGE BABY SNOMED Code(s): 02510013 Plan: Will remove tree and place Steri-Strips today. We'll continue with care and pain management today. Anticipate discharge home tomorrow.
[2019-08-04] MEDS: SENNOSIDES-DOCUSATE SODIUM 1 EACH TAB PO SCH ×2 (08:35→21:31)
[2019-08-04] MEDS: HYDROcodone/APAP 5-325MG 1 EACH TAB PO PRN ×2 (10:24→16:08)
[2019-08-05] MEDS: IBUPROFEN 600 MG TAB PO PRN ×2 (00:03→06:21)
[2019-08-05 01:39] VITALS: RESP 16
[2019-08-05] MEDS: HYDROcodone/APAP 7.5-325MG 1 EACH TAB PO PRN ×2 (02:59→09:04)
--- NOTE | 2019-08-05 08:40 | P.DS ---
Providers Date of admission: 08/02/19 05:48 Expected date of discharge: 08/05/19 Attending physician: Lisseth Castro Primary care physician: Lisseth Castro - Discharge Diagnosis(es) (1) 39 weeks gestation of Current Visit: No Status: Acute (2) Macrosomia Current Visit: No Status: Acute Hospital Course: This is a 23-year-old female 1 para 0 at 39-5/7 weeks who presented for scheduled primary section secondary to macrosomia. She underwent a primary low transverse section on 08/02/2019 and delivered a viable male infant with scores of 9 at 1 minute and 9 at 5 minutes and weight of 10 lbs. 8 oz. Her postoperative and course were essentially uncomplicated. She did initially have some issues with pain control but this has improved. She is using ibuprofen and [place]. She is passing flatus and bowel movement. Lochia is decreasing. She is bottle feeding. Vital signs are stable. Abdomen is soft with positive bowel sounds 4. Incision is clean dry and intact. Extremities show negative Homans. Impression is status post primary section postoperative day #3. Plan is to discharge home today. Routine postoperative and instructions are given. She will be given a prescription for ibuprofen and [place]. She has been counseled regarding opioid use and has signed a opioid start talking form. Howells have been removed and Steri-Strips are placed. She is advised to follow-up in the office in 1 week for a postoperative check and in 6 weeks for a check. Routine postoperative instructions are given. She is advised to call the office if she has any further questions or concerns prior to her appointment time. Procedures: Primary low transverse section on 08/02/2019 Patient Condition at Discharge: Stable Plan - Discharge Summary Discharge Rx Participant: No New Discharge Prescriptions: New Ibuprofen [Motrin] 600 mg PO Q6HR PRN #60 tab PRN Reason: Mild Pain Or Fever >= 100.5 HYDROcodone/APAP 7.5-325MG [[place] 7.5-325] 1 each PO Q6H PRN #28 tab PRN Reason: Severe Pain Continue Yib-Upoh-Dmfuq Acid [-U Capsule (formulary)] 1 cap PO DAILY No Action Acetaminophen Tab [Tylenol Tab] 650 mg PO Q4H PRN PRN Reason: Pain L.acidoph,Paracasei, B.lactis [Probiotic] 1 each PO DAILY Discharge Medication List Acetaminophen Tab [Tylenol Tab] 650 mg PO Q4H PRN 05/06/17 [History] L.acidoph,Paracasei, B.lactis [Probiotic] 1 each PO DAILY 07/29/19 [History] Msr-Xrxl-Oveqg Acid [-U Capsule (formulary)] 1 cap PO DAILY 07/29/19 [History] HYDROcodone/APAP 7.5-325MG [[place] 7.5-325] 1 each PO Q6H PRN #28 tab 08/05/19 [Rx] Ibuprofen [Motrin] 600 mg PO Q6HR PRN #60 tab 08/05/19 [Rx] Follow up Appointment(s)/Referral(s): Lisseth Castro DO [Primary Care Provider] - 1 Week Discharge Disposition: HOME SELF-CARE
[2019-08-05] MEDS: SENNOSIDES-DOCUSATE SODIUM 1 EACH TAB PO SCH (09:04)
[2019-08-05 09:41] VITALS: BP 132/75; PULSE 95; TEMP 98.4
== END 2019-08-05 11:00 | disposition home or self-care (01) | DRG 786 ==
LOC: 4FBP 05:48
PROVIDERS: ADMIT Obstetrics & Gynecology; ATTEND Obstetrics & Gynecology
PROC: 10D00Z1 Extraction of Products of Conception, Low, Open Approach (ICD-10-PCS; principal; 2019-08-02 08:00)
DX: O36.63X0 Maternal care for excessive fetal growth, third trimester, not applicable or unspecified (principal); O99.42 Diseases of the circulatory system complicating childbirth; I48.92 Unspecified atrial flutter; O16.4 Unspecified maternal hypertension, complicating childbirth; O43.193 Other malformation of placenta, third trimester; O99.344 Other mental disorders complicating childbirth; F90.9 Attention-deficit hyperactivity disorder, unspecified type; O99.62 Diseases of the digestive system complicating childbirth; O99.824 Streptococcus B carrier state complicating childbirth; K21.9 Gastro-esophageal reflux disease without esophagitis; L29.9 Pruritus, unspecified; O99.72 Diseases of the skin and subcutaneous tissue complicating childbirth; Z37.0 Single live birth; Z3A.39 39 weeks gestation of pregnancy
CPT/HCPCS: 85025; 86850; 86900; 86901; 88307; 90707

== ENCOUNTER → 2021-04-17 | Outpatient (CLI) | payer OTHER ==
--- NOTE | 2021-04-17 08:43 | MR ---
EXAMINATION TYPE: MR knee LT wo con DATE OF EXAM: 04/17/2021 COMPARISON: 04/02/2021 HISTORY: 25-year-old female M25.562, Left knee pain, Slipped off steps, Hx of ACL repair x 10 years a go TECHNIQUE: Multiplanar, multisequence imaging of the left knee is performed without IV contrast. FINDINGS: Postsurgical change of previous ACL graft reconstruction. There is increased signal within the graft that could reflect degenerative change but intact fibers are visualized. PCL, MCL, and LCL complex are intact. There is a large bucket-handle tear involving the entirety of the medial meniscus with flipped fragme nt in the intercondylar region. Overall preserved medial compartment articular cartilage volume. There is an oblique tear at the junction of the posterior horn and body of the lateral meniscus. Over all lateral compartment articular cartilage volume appears maintained. Patellofemoral compartment articular cartilage appears intact. There is a gzzxn-sz-aktgzsej knee joint effusion and a moderate-sized 6.2 x 4.8 cm Vargas's cyst which shows minimal leakage. Extensor mechanism is intact. Normal popliteal artery anatomy and muscle bulk. No suspicious bone marrow replacement. IMPRESSION: 1. Previous ACL graft reconstruction. There is degenerative signal within the graft but it appears in tact. 2. Large bucket-handle tear involving the entirety of the medial meniscus with flipped fragment in th e intercondylar region. 3. Small oblique tear at the junction of the posterior horn and body of the lateral meniscus. 4. Small to moderate knee joint effusion and a moderate-sized 6.2 cm Vargas cyst which shows minimal l eakage.
== END | disposition home or self-care (01) ==
LOC: RADMRIMAIN 06:50
PROVIDERS: ATTEND Orthopaedic Surgery
DX: M23.322 Other meniscus derangements, posterior horn of medial meniscus, left knee (principal); M17.12 Unilateral primary osteoarthritis, left knee; M71.22 Synovial cyst of popliteal space [Baker], left knee

== ENCOUNTER 2021-05-30 10:39 | Day surgery (SDC) | payer OTHER ==
[2021-05-23 09:00] VITALS: BMI 40.4
--- NOTE | 2021-05-29 19:47 | HP ---
HISTORY AND PHYSICAL DATE OF SURGERY: 05/30/2021 Lashae Alcazar is a 25-year-old patient seen with progressive left knee pain. We discussed options for treatment. She elected to proceed with arthroscopy. Consent was obtained. PAST MEDICAL HISTORY: Attention deficit disorder. PAST SURGICAL HISTORY: Left knee ACL reconstruction. DAILY MEDICATIONS: Adderall. ALLERGIES: NONE. SOCIAL HISTORY: She denies tobacco use. PHYSICAL EVALUATION OF THE LEFT KNEE: Range of motion zero to 130. Mild effusion. Tenderness, medial joint line. Positive medial Margot's. Jose's +1, good endpoint. Distal neurovascular exam intact. RADIOGRAPHS: Radiographs of the left knee revealed evidence for previous ACL reconstruction. MRI left knee revealed a bucket-handle medial meniscal tear and stable ACL graft. IMPRESSION: 1. Internal derangement of left knee with medial meniscal tear. 2. History of left knee ACL reconstruction. PLAN: Left knee arthroscopy with partial meniscectomy and debridement. MMODL / IJN: [id number] /
[~2021-05-30 10:39] MED LIST: DEXAMETHASONE SOD PHOSPHATE 4 MG/ML 1 ML VIAL IV ONE; HYDROmorphone 0.5 MG/0.5 ML SYRINGE IVP PRN; ONDANSETRON 4 MG/2 ML VIAL IVP ONE
[2021-05-30 11:13] VITALS: RESP 16
[2021-05-30] MEDS: LACTATED RINGERS 1,000 ML IV SCH ×3 (11:24→14:04)
[2021-05-30] MEDS ORDERED: MIDAZOLAM 2 MG/2 ML VIAL IVP ONE (12:24)
[2021-05-30] MEDS ORDERED: BUPIVACAINE (PF) 0.25% 30 ML VIAL SQ ONE ×2 (12:30→13:07)
[2021-05-30] MEDS ORDERED: PROPOFOL 10 MG/ML 20 ML VIAL IV ONE (12:35)
[2021-05-30] MEDS ORDERED: fentaNYL (PF) 50 MCG/ML 2 ML AMP ONE (12:35)
[2021-05-30] MEDS ORDERED: LIDOCAINE 1% INJ 10MG/ML (20 ML MDV) ONE (12:35)
[2021-05-30] MEDS ORDERED: diphenhydrAMINE 50 MG/ML 1 ML VIAL ONE (12:35)
[2021-05-30] MEDS ORDERED: ONDANSETRON 4 MG/2 ML VIAL ONE (12:35)
[2021-05-30] MEDS ORDERED: SUCCINYLCHOLINE CHLORIDE 100 MG/5 ML SYR IV ONE (12:35)
--- NOTE | 2021-05-30 13:25 | P.OP ---
Date of Procedure: 05/30/21 Preoperative Diagnosis: Internal derangement left knee Postoperative Diagnosis: 1. Tear medial meniscus left knee 2. ACL graft tear left knee 3. Reactive synovitis medial, lateral and suprapatellar compartments left knee Procedure(s) Performed: 1. Arthroscopic partial medial meniscectomy left knee 2. Arthroscopic debridement ACL graft tear left knee 3. Arthroscopic partial synovectomy medial, lateral and suprapatellar compartments left knee Anesthesia: EMELYA, local Surgeon: Home Bolden Estimated Blood Loss (ml): 6 Pathology: none sent Condition: stable Disposition: PACU Indications for Procedure: 25-year-old patient seen with progressive left knee pain. After treatment options were discussed, she elected to proceed with arthroscopy. Operative Findings: See description of procedure Description of Procedure: Patient was taken to the operative suite. Patient underwent a general anesthetic by the department of anesthesia. Patient was given preoperative antibiotics. The left lower extremity was placed in a well-padded arthroscopic leg matson. The left leg was prepped and draped in the normal sterile orthopedic fashion. A lateral parapatellar and suprapatellar incision was made. Trochars were inserted. Arthroscopy was initiated. Suprapatellar pouch revealed diffuse thick reactive synovitis. The patellofemoral joint appeared to articulate congruently. There was grade 1 chondromalacia patella with no significant osteochondral tears present. The scope was guided into the medial gutter. No loose bodies or plica were identified. The scope was then guided into the medial compartment. A medial parapatellar incision was made. Trocar inserted followed by probe. There was a bucket-handle tear which appeared to all white zone. I reduced the tear. I explored the tear and it was in fact a completely white zone tear and not repairable. I now performed a partial medial meniscectomy. I essentially excised the entire two thirds of the meniscus involving the posterior horn and midbody area. The residual anterior horn was stable. There was thick reactive synovitis anteriorly. I introduced a motorized shaver and performed a partial synovectomy. Shaver was removed. The residual anterior horn the meniscus was stable. There was good decompression of synovitis. Scope and probe were then guided into the intercondylar notch. The ACL graft appeared torn with very few fibers remaining. I probed it was fibers out and they were all stretched out and very loose. I introduced a motorized shaver and debrided out the remnants of that ACL graft. The PCL was probed and found to be stable.. The scope and probe were then guided into lateral compartment. Lateral meniscus was probed and found to be stable. It was no significant chondral malacia. There was thick reactive synovitis. I introduced a motorized shaver and performed a partial synovectomy. The shaver was removed. There was good decompression of the synovitis. The scope was in guided back into the suprapatellar compartment. I introduced a motorized shaver into the super compartment. I debrided out some piecemeal fragments of meniscus that I encountered. I performed a partial synovectomy. Shaver was removed. There was good decompression of the synovitis. I now took one more look on the entire knee, no residual debris. Instruments were now removed from the joint. The joint was infiltrated with .25% Marcaine. Steri-Strips were applied to the portal sites. Sterile dressings were applied. The patient was placed into a ZENA hose. No tourniquet was utilized. The patient was awakened, transferred to a bed and taken to recovery stable satisfactory condition.
[2021-05-30 13:30] VITALS: TEMP 97.3
[2021-05-30 14:43] VITALS: BP 105/67; PULSE 99
== END 2021-05-30 15:09 | disposition home or self-care (01) ==
LOC: OR 10:39
PROVIDERS: ATTEND Orthopaedic Surgery
DX: S83.242A Other tear of medial meniscus, current injury, left knee, initial encounter (principal); M23.92 Unspecified internal derangement of left knee; M65.9 Synovitis and tenosynovitis, unspecified; F98.8 Other specified behavioral and emotional disorders with onset usually occurring in childhood and adolescence; Z79.899 Other long term (current) drug therapy
CPT/HCPCS: 29881; 29876; J2250; J1200; J1100; J0690; J2405; J2001; J3010; J0330; J2704

== ENCOUNTER 2024-09-07 10:37 | Day surgery (SDC) | payer OTHER ==
--- NOTE | 2024-09-07 09:32 | P.GSHP ---
History of Present Illness H&P Date: 09/07/24 CHIEF COMPLAINT: Colon screen HISTORY OF PRESENT ILLNESS: The patient is a 29-year-old female who presents for colon screen. Lower endoscopy was offered for further evaluation and management. PAST MEDICAL HISTORY: Please see list. PAST SURGICAL HISTORY: Please see list. MEDICATIONS: Please see list. ALLERGIES: Please see list. SOCIAL HISTORY: No illicit drug use FAMILY HISTORY: No reports of Crohn disease or ulcerative colitis. REVIEW OF ORGAN SYSTEMS: CONSTITUTIONAL: No reports of fevers or chills. PHYSICAL EXAM: VITAL SIGNS: Stable GENERAL: Well-developed pleasant in no acute distress. HEENT: No scleral icterus. Extraocular movements grossly intact. Moist buccal mucosa. NECK: Supple without lymphadenopathy. CHEST: Unlabored respirations. Equal bilateral excursions. CARDIOVASCULAR: Regular rate and rhythm. Distal 2+ pulses. ABDOMEN: Soft, nontender, nondistended. MUSCULOSKELETAL: No clubbing, cyanosis, or edema. ASSESSMENT: 1. Colon screen. PLAN: 1. Recommend proceeding with a lower endoscopy Past Medical History Past Medical History: Atrial Fibrillation, Atrial Flutter, GERD/Reflux, Hypertension, Syncope Additional Past Medical History / Comment(s): vasal vagal syncope 5 yrs ago. hx irregular heart rate "races"- not currently History of Any Multi-Drug Resistant Organisms: None Reported Past Surgical History: Section, Orthopedic Surgery Additional Past Surgical History / Comment(s): left knee arthroscopy, left knee ACL replacement Past Anesthesia/Blood Transfusion Reactions: No Reported Reaction Additional Past Anesthesia/Blood Transfusion Reaction / Comment(s): woke up with a panic attack after left knee arthroscopy Smoking Status: Former smoker, Vaper - Past Family History Mother Family Medical History: No Reported History Medications and Allergies Home Medications Medication Instructions Recorded Confirmed Type Dextroamphetamine/Amphetamine 20 mg PO BID 05/23/21 09/05/24 History [Adderall] Loratadine [Claritin] 10 mg PO DAILY 09/05/24 09/05/24 History Vitamin B12 1 dose PO DAILY 09/05/24 09/05/24 History Vitamin D 1 dose PO DAILY 09/05/24 09/05/24 History Allergies Allergy/AdvReac Type Severity Reaction Status Date / Time No Known Allergies Allergy Verified 09/05/24 15:53
[2024-09-07] MEDS: IV FLUID CONTINUATION 1,000 ML IV ONE (11:34)
[2024-09-07 11:38] VITALS: TEMP 97.6
[2024-09-07] MEDS: LACTATED RINGERS 1,000 ML IV SCH (11:40)
[2024-09-07] MEDS ORDERED: PROPOFOL 10 MG/ML 20 ML VIAL IV ONE (12:18)
--- NOTE | 2024-09-07 12:52 | P.PCN ---
Date of Procedure: 09/07/24 Description of Procedure: PREOPERATIVE DIAGNOSIS: Abnormal stool function Change in bowel habits POSTOPERATIVE DIAGNOSIS: Microscopic colitis OPERATION: Colonoscopy to the cecum, ileocecal valve and appendiceal orifice. Colonoscopy with random cold forceps biopsies for microscopic colitis SURGEON: Noreen Toussaint MD. ANESTHESIA: MAC. INDICATIONS: The patient is a 29-year-old female who presents with altered stools including change in bowel habits. Benefits and risks were described and informed consent was obtained. DESCRIPTION OF PROCEDURE: The patient had undergone Suprep. The patient had been brought into the operating room and laid in the left lateral decubitus position. After adequate intravenous sedation, the rectum was examined with 2% lidocaine jelly. No external hemorrhoids were encountered. The rectal tone was within normal limits. No lesions were palpated in the rectal vault. An Olympus colonoscope was advanced until the cecum, ileocecal valve and appendiceal orifice were clearly viewed. The prep was excellent. No scattered diverticulosis was encountered. No colonic polyps were found. Cold forceps biopsies randomly were obtained for microscopic colitis. Retroflexion of the scope demonstrated grade 1 internal hemorrhoids without active bleeding or inflammation. The colon was desufflated. The patient had tolerated the procedure well. Withdrawal time was over 6 minutes. FINDINGS: Aronchick preparation quality scale 1 (1-5) Internal hemorrhoids, grade 1 No external prolapsed hemorrhoids. No arteriovenous malformations. No adenomatous polyps. Cold forceps biopsies obtained for microscopic colitis RECOMMENDATIONS: Lower endoscopy as needed Plan - Discharge Summary Discharge Rx Participant: No New Discharge Prescriptions: Continue Dextroamphetamine/Amphetamine [Adderall] 20 mg PO BID Loratadine [Claritin] 10 mg PO DAILY Vitamin B12 1 dose PO DAILY Vitamin D 1 dose PO DAILY Discharge Medication List Dextroamphetamine/Amphetamine [Adderall] 20 mg PO BID 05/23/21 [History] Loratadine [Claritin] 10 mg PO DAILY 09/05/24 [History] Vitamin B12 1 dose PO DAILY 09/05/24 [History] Vitamin D 1 dose PO DAILY 09/05/24 [History] Follow up Appointment(s)/Referral(s): Noreen Toussaint MD [STAFF PHYSICIAN] - 10/25/24 1:30 pm Patient Instructions/Handouts: Colitis (ED) Discharge Disposition: HOME SELF-CARE
[2024-09-07 13:10] VITALS: BP 110/74; PULSE 69; RESP 18
== END 2024-09-07 13:39 | disposition home or self-care (01) ==
LOC: ORWHC2ENDO 10:37
PROVIDERS: ATTEND Surgery Plastic and Reconstructive Surgery
DX: R19.4 Change in bowel habit (principal); K21.9 Gastro-esophageal reflux disease without esophagitis; I48.91 Unspecified atrial fibrillation; I10 Essential (primary) hypertension; Z87.891 Personal history of nicotine dependence; Z96.652 Presence of left artificial knee joint; Z79.899 Other long term (current) drug therapy
CPT/HCPCS: 81025; 88305; 45380; J2704